=== PATIENT | male | born 1955 ===

== ENCOUNTER 2025-05-27 14:13 | Outpatient (CLI) | payer MEDICARE, SELFPAY ==
[2025-05-27 14:38] LABS: HCT 38.3 % (40.0-50.0); HGB 13.1 g/dL (13.5-17.5); MCH 31.4 pg (27.0-33.0); MCHC 34.2 % (32.0-36.0); MCV 92 fL (80-95); RBC 4.17 10^6/uL (4.36-5.78); RDW 13.9 % (11.8-14.1); RDW-SD 47.5 fL; WBC 9.58 10^3/uL (4.4-10.8)
[2025-05-27 14:38] LABS: Glucose Negative (Negative)
[2025-05-27 14:54] LABS: ALT 17 U/L (10-49); AST 25 U/L (<34); Albumin 4.4 g/dL (3.2-5.0); Alkaline Phosphatase 160 U/L (46-116); Anion Gap 5.6 mmol/L (3-11); BUN 46 mg/dL (9-23); Bilirubin, Total 0.40 mg/dL (0.2-1.2); CO2 24.4 mmol/L (20.0-31.0); Calcium 10.6 mg/dL (8.3-10.6); Chloride 108 mmol/L (98-107); Glucose 96 mg/dL (74-106); Potassium 4.2 mmol/L (3.5-5.1); Sodium 138 mmol/L (136-145); Total Protein 7.7 g/dL (5.7-8.2)
[2025-05-27 14:57] LABS: Abs Immature Grans 0.00 10^3/uL (0.0-0.06); Immature Grans % 0.0 %
[2025-05-27 14:58] LABS: RBC Morphology Normal
== END 2025-05-27 14:14 | disposition home or self-care (01) ==
PROVIDERS: PCP Internal Medicine Hematology & Oncology; Visit Provider Internal Medicine Hematology & Oncology
DX: D32.9 Benign neoplasm of meninges, unspecified (principal)
CPT/HCPCS: 36415; 80053; 81003; 85025

== ENCOUNTER 2025-06-17 09:42 | Outpatient (CLI) | payer MEDICARE, SELFPAY ==
[2025-06-17 10:24] LABS: Abs Immature Grans 0.03 10^3/uL (0.0-0.06); HCT 39.0 % (40.0-50.0); HGB 13.2 g/dL (13.5-17.5); Immature Grans % 0.3 %; MCH 31.3 pg (27.0-33.0); MCHC 33.8 % (32.0-36.0); MCV 92 fL (80-95); MPV 11.9 fL (8.0-11.0); Platelet Count 144 10^3/uL (130-400); RBC 4.22 10^6/uL (4.36-5.78); RDW 13.8 % (11.8-14.1); RDW-SD 47.0 fL; WBC 9.91 10^3/uL (4.4-10.8)
[2025-06-17 10:39] LABS: ALT 17 U/L (10-49); AST 23 U/L (<34); Albumin 4.3 g/dL (3.2-5.0); Alkaline Phosphatase 163 U/L (46-116); Anion Gap 7.2 mmol/L (3-11); BUN 39 mg/dL (9-23); Bilirubin, Total 0.4 mg/dL (0.2-1.2); CO2 25.8 mmol/L (20.0-31.0); Calcium 11.3 mg/dL (8.3-10.6); Chloride 106 mmol/L (98-107); Glucose 113 mg/dL (74-106); Potassium 4.7 mmol/L (3.5-5.1); Sodium 139 mmol/L (136-145); Total Protein 7.7 g/dL (5.7-8.2)
[2025-06-17 10:42] LABS: RBC Morphology Normal
[2025-06-17 12:18] LABS: Glucose Negative (Negative)
== END 2025-06-17 09:43 | disposition home or self-care (01) ==
LOC: LBO 09:46
PROVIDERS: PCP Internal Medicine Hematology & Oncology; Visit Provider Internal Medicine Hematology & Oncology
DX: D32.9 Benign neoplasm of meninges, unspecified (principal)
CPT/HCPCS: 36415; 80053; 81003; 85025